=== PATIENT | male | born 1945 | race Caucasian/White ===

== ENCOUNTER 2017-04-26 21:57 | Inpatient (IN) | payer OTHER ==
[~2017-04-26] VITALS: Ht 185.4 cm; Wt 168.0 kg
[~2017-04-26 21:57] MED LIST: ACTOS30 MG PO; ALLOPURINOL300 MG PO; Allopurinol PO; Aspirin Chewable PO; BISOPROLOL FUMA10 MG PO; COLACE100 MG PO; COUMADIN,JANTOVE6 MG PO; DIOVAN80 MG PO; FUROSEMIDE40 MG PO; KLOR-CON M2020 MEQ PO; KLOR-CON20 MEQ PO; Klor-Con M20 PO; LANTUS 10100 UNITS/ SC; LANTUS100 UNIT/1 SQ; LANTUS100 UNIT/2 SQ; Lantus 3 ml Solostar SC; Lantus SQ; Lovenox SC; METFORMIN HCL500 MG PO; NORVASC10 MG PO; NOVOLOG 10100 UNITS/ SC; NovoLOG Pen 3 ml SC; PERCOCET 5/31 TABLET PO; PRAVASTATIN SOD80 MG PO; PREDNISONE20 MG PO; Proair HFA IH; SIMVASTATIN80 M1 PO; SIMVASTATIN80 MG PO; TRAMADOL HCL50 MG PO; Victoza SC; ZEBETA5 MG PO; Zocor PO
[2017-04-26 22:10] LABS: CREATININE 1.6 mg/dL (0.6-1.3); POTASSIUM 4.5 mEq/L (3.7-5.4)
[2017-04-26 23:09] LABS: HEMATOCRIT 43.2 % (38.0-50.0); MCH 28.6 PG (29.0-34.0); MCHC 32.4 G/DL (30.0-36.0); MCV 88.3 FL (86-99); MEAN PLAT.VOLUME 10.4 uM^3 (9.0-12.4); PLATELET COUNT 215 K/uL (156-360); RBC DIS.WIDTH-CV 14.6 % (11.8-14.6); RBC DIS.WIDTH-SD 47.3 % (39-53); RED BLOOD COUNT 4.89 M/uL (4.00-5.50); WHITE BLOOD COUNT 10.8 K/uL (4.1-10.2)
[2017-04-26 23:18] LABS: CHLORIDE 101 mEq/L (99-109); POTASSIUM 4.7 mEq/L (3.7-5.4); SODIUM 137 mEq/L (136-147)
[2017-04-26 23:20] LABS: GLUCOSE 93 mg/dL (70-99)
[2017-04-26 23:22] LABS: ANION GAP 11 MEQ/L (2-14)
[2017-04-26 23:24] LABS: GFR ESTIMATE (CALCULATED) 42 mL/min/
[2017-04-26 23:25] LABS: UREA NITROGEN (BUN) 29 mg/dL (9-23)
[2017-04-26 23:34] LABS: TROP-I INTERPRETATION POSITIVE; TROPONIN-I 43.42 ng/mL (0.0-0.30)
[2017-04-27] VITALS (24 sets, daily range): BP systolic 87–144; BP diastolic 43–103
[2017-04-27 00:31] LABS: INTER. NORMALIZED RATIO 3.3; PROTHROMBIN TIME 35.2 (9.2-11.2); PTT 69.6 (25-32)
[2017-04-27 03:50] LABS: METH RESISTANT S AUREUS PCR NEGATIVE (NEGATIVE)
[2017-04-27 04:10] LABS: PROBE CHECK PASS; SPECIMEN PROCESSING CONTROL PASS
[2017-04-27 05:25] LABS: HEMATOCRIT 41.6 % (38.0-50.0); MCHC 32.5 G/DL (30.0-36.0); MCV 89.3 FL (86-99); MEAN PLAT.VOLUME 10.2 uM^3 (9.0-12.4); PLATELET COUNT 208 K/uL (156-360); RBC DIS.WIDTH-CV 14.9 % (11.8-14.6); RBC DIS.WIDTH-SD 48.4 % (39-53); RED BLOOD COUNT 4.66 M/uL (4.00-5.50)
[2017-04-27 05:37] LABS: TROP-I INTERPRETATION POSITIVE; TROPONIN-I 46.76 ng/mL (0.0-0.30)
[2017-04-27 05:58] LABS: INTER. NORMALIZED RATIO 3.9; PROTHROMBIN TIME 41.5 (9.2-11.2)
[2017-04-27 06:26] LABS: ANION GAP 8 MEQ/L (2-14); CHLORIDE 101 MEQ/L (99-109); GFR ESTIMATE (CALCULATED) 49 mL/min/; POTASSIUM 4.4 MEQ/L (3.7-5.4); SAMPLE HEMOLYSIS CHECK 0; SAMPLE ICTERIC CHECK 0; SAMPLE LIPEMIA CHECK 0; SODIUM 133 MEQ/L (136-147); UREA NITROGEN (BUN) 25 mg/dL (9-23)
[2017-04-27 06:30] LABS: GLUCOSE 62 mg/dL (70-99)
[2017-04-27 07:41] LABS: POINT-OF-CARE METER ID UU14162636
[2017-04-27 07:52] LABS: POINT-OF-CARE METER ID UU14162636
[2017-04-27 11:42] LABS: POINT-OF-CARE METER ID UU14162636
[2017-04-27 13:22] LABS: POINT-OF-CARE METER ID UU14162636
[2017-04-27 15:25] LABS: POINT-OF-CARE METER ID UU14162636
[2017-04-27 16:59] LABS: POINT-OF-CARE METER ID UU14162636
[2017-04-27 21:17] LABS: POINT-OF-CARE METER ID UU14162636
[2017-04-28] VITALS (24 sets, daily range): BP systolic 83–146; BP diastolic 25–88
[2017-04-28 05:56] LABS: HEMATOCRIT 37.3 % (38.0-50.0); MCH 28.6 PG (29.0-34.0); MCHC 31.6 G/DL (30.0-36.0); MCV 90.3 FL (86-99); MEAN PLAT.VOLUME 10.8 uM^3 (9.0-12.4); PLATELET COUNT 170 K/uL (156-360); RBC DIS.WIDTH-CV 14.9 % (11.8-14.6); RBC DIS.WIDTH-SD 49.8 % (39-53); RED BLOOD COUNT 4.13 M/uL (4.00-5.50)
[2017-04-28 06:00] LABS: TROP-I INTERPRETATION POSITIVE
[2017-04-28 06:17] LABS: INTER. NORMALIZED RATIO 3.1; PROTHROMBIN TIME 32.8 (9.2-11.2)
[2017-04-28 06:24] LABS: CHLORIDE 104 mEq/L (99-109); POTASSIUM 5.2 mEq/L (3.7-5.4); SODIUM 133 mEq/L (136-147)
[2017-04-28 06:27] LABS: ANION GAP 7 MEQ/L (2-14)
[2017-04-28 06:29] LABS: GFR ESTIMATE (CALCULATED) 37 mL/min/; GLUCOSE 113 mg/dL (70-99)
[2017-04-28 06:30] LABS: UREA NITROGEN (BUN) 28 mg/dL (9-23)
[2017-04-28 12:14] LABS: POINT-OF-CARE METER ID UU13113731
[2017-04-28 15:51] LABS: POINT-OF-CARE METER ID UU13113731
[2017-04-28 18:58] LABS: TOTAL BILIRUBIN 0.5 mg/dL (0.0-1.0)
[2017-04-28 18:59] LABS: ALKALINE PHOSPHATASE 75 IU/L (3-129)
[2017-04-28 19:02] LABS: DIRECT BILIRUBIN 0.2 mg/dL (0.0-0.3)
[2017-04-28 19:03] LABS: LIPASE 11 U/L (1.0-51.0)
[2017-04-29] VITALS (16 sets, daily range): BP systolic 108–150; BP diastolic 64–83
[2017-04-29 06:02] LABS: INTER. NORMALIZED RATIO 2.4
[2017-04-29 08:42] LABS: ANION GAP 9 MEQ/L (2-14); CHLORIDE 98 MEQ/L (99-109); GFR ESTIMATE (CALCULATED) 37 mL/min/; GLUCOSE 283 mg/dL (70-99); POTASSIUM 5.6 MEQ/L (3.7-5.4); SAMPLE HEMOLYSIS CHECK 0; SAMPLE ICTERIC CHECK 0; SAMPLE LIPEMIA CHECK 0; SODIUM 128 MEQ/L (136-147); UREA NITROGEN (BUN) 36 mg/dL (9-23)
[2017-04-29] MEDS ORDERED: ZYLOPRIM300 MG PO (08:45)
[2017-04-29] MEDS ORDERED: ZEBETA10 MG PO (08:50)
[2017-04-29] MEDS ORDERED: LANTUS 3 M100 UNITS1 SC ×2 (08:58→08:59)
[2017-04-29] MEDS ORDERED: COUMADIN2 MG PO (09:00)
[2017-04-29] MEDS ORDERED: K-DUR20 MEQ PO (09:03)
[2017-04-29] MEDS ORDERED: PROAIR HFA8.5 GM IH (09:04)
[2017-04-29] MEDS ORDERED: HUMALOG100 UNIT/2 SC (09:07)
[2017-04-29] MEDS ORDERED: PRAVACHOL20 MG PO (09:08)
[2017-04-29] MEDS ORDERED: NEURONTIN300 MG PO (09:10)
[2017-04-29] MEDS ORDERED: NORVASC10 MG PO (09:10)
[2017-04-29] MEDS ORDERED: SINGULAIR10 MG PO (09:11)
[2017-04-29] MEDS ORDERED: PAIN RELIEF650 MG PO (09:13)
[2017-04-29 10:00] LABS: EOSINOPHIL (%) 0 % (0-5); HEMATOCRIT 41.7 % (38.0-50.0); IMMATURE GRANULOCYTE (%) 0.5 % (0.0-0.7); IMMATURE GRANULOCYTE COUNT 0.1 K/uL; INSTRUMENT ABS NEUTROPHIL CT 11.8 K/uL; LYMPHOCYTE COUNT 0.4 K/uL (1.0-2.8); MCH 28.8 PG (29.0-34.0); MCHC 32.6 G/DL (30.0-36.0); MCV 88.2 FL (86-99); MEAN PLAT.VOLUME 10.7 uM^3 (9.0-12.4); MONOCYTE (%) 3.1 % (3-12); MONOCYTE COUNT 0.4 K/uL (0-0.8); NEUTROPHIL (%) 93.6 % (45-76); NEUTROPHIL COUNT 11.8 K/uL (1.8-6.4); PLATELET COUNT 193 K/uL (156-360); RBC DIS.WIDTH-CV 14.6 % (11.8-14.6); RBC DIS.WIDTH-SD 47.2 % (39-53); RED BLOOD COUNT 4.73 M/uL (4.00-5.50); WHITE BLOOD COUNT 12.6 K/uL (4.1-10.2)
[2017-04-29 13:22] LABS: ANION GAP 8 MEQ/L (2-14); CHLORIDE 96 MEQ/L (99-109); GFR ESTIMATE (CALCULATED) 40 mL/min/; GLUCOSE 351 mg/dL (70-99); POTASSIUM 5.3 MEQ/L (3.7-5.4); SAMPLE HEMOLYSIS CHECK 0; SAMPLE ICTERIC CHECK 0; SAMPLE LIPEMIA CHECK 0; SODIUM 129 MEQ/L (136-147); UREA NITROGEN (BUN) 35 mg/dL (9-23)
[2017-04-29 17:21] LABS: ADD MIUA? YES; BILIRUBIN NEGATIVE; BLOOD SMALL; COLOR YELLOW ((YELLOW)); GLUCOSE (STRIP) >=500; KETONES NEGATIVE; LEUKOCYTES NEGATIVE; NITRITE NEGATIVE; PROTEIN (STRIP) NEGATIVE; SPECIFIC GRAVITY 1.017 (1.000-1.030); UROBILINOGEN 0.2 MG/DL (0.2-1.0)
[2017-04-29 17:25] LABS: BACTERIA NONE SEEN /HPF; EPITHELIAL CELLS RARE /HPF; MUCUS NONE SEEN /LPF; RED BLOOD CELLS 0-5 /HPF (0-5); WHITE BLOOD CELLS 0-5 /HPF (0-5)
[2017-04-30] VITALS: BP 110/65
[2017-04-30 04:00] VITALS: BP 111/69
[2017-04-30 05:27] LABS: EOSINOPHIL (%) 0 % (0-5); IMMATURE GRANULOCYTE (%) 0.6 % (0.0-0.7); IMMATURE GRANULOCYTE COUNT 0.1 K/uL; INSTRUMENT ABS NEUTROPHIL CT 14.1 K/uL; LYMPHOCYTE COUNT 0.3 K/uL (1.0-2.8); MCHC 33.5 G/DL (30.0-36.0); MCV 86.7 FL (86-99); MEAN PLAT.VOLUME 10.7 uM^3 (9.0-12.4); MONOCYTE (%) 3.8 % (3-12); MONOCYTE COUNT 0.6 K/uL (0-0.8); NEUTROPHIL (%) 93.4 % (45-76); NEUTROPHIL COUNT 14.1 K/uL (1.8-6.4); PLATELET COUNT 205 K/uL (156-360); RBC DIS.WIDTH-CV 14.6 % (11.8-14.6); RBC DIS.WIDTH-SD 46.1 % (39-53); RED BLOOD COUNT 4.27 M/uL (4.00-5.50); WHITE BLOOD COUNT 15.1 K/uL (4.1-10.2)
[2017-04-30 05:33] LABS: INTER. NORMALIZED RATIO 3.2; PROTHROMBIN TIME 33.7 (9.2-11.2)
[2017-04-30 05:48] LABS: ANION GAP 8 MEQ/L (2-14); CHLORIDE 96 MEQ/L (99-109); GFR ESTIMATE (CALCULATED) 42 mL/min/; GLUCOSE 290 mg/dL (70-99); POTASSIUM 5.4 MEQ/L (3.7-5.4); SAMPLE HEMOLYSIS CHECK 0; SAMPLE ICTERIC CHECK 0; SAMPLE LIPEMIA CHECK 0; SODIUM 130 MEQ/L (136-147); UREA NITROGEN (BUN) 38 mg/dL (9-23)
[2017-04-30 09:00] VITALS: BP 164/91
[2017-04-30 12:00] VITALS: BP 154/78
[2017-04-30 12:29] LABS: POINT-OF-CARE METER ID UU13113803
[2017-04-30 17:19] LABS: POINT-OF-CARE METER ID UU13113803
[2017-04-30 19:57] VITALS: BP 141/74
[2017-04-30 21:37] LABS: POINT-OF-CARE METER ID UU13113731
[2017-05-01] VITALS (7 sets, daily range): BP systolic 123–157; BP diastolic 57–89
[2017-05-01 05:31] LABS: EOSINOPHIL (%) 0 % (0-5); HEMATOCRIT 40.2 % (38.0-50.0); IMMATURE GRANULOCYTE (%) 0.7 % (0.0-0.7); IMMATURE GRANULOCYTE COUNT 0.1 K/uL; INSTRUMENT ABS NEUTROPHIL CT 14.8 K/uL; LYMPHOCYTE COUNT 0.4 K/uL (1.0-2.8); MCHC 32.3 G/DL (30.0-36.0); MCV 86.6 FL (86-99); MEAN PLAT.VOLUME 10.2 uM^3 (9.0-12.4); MONOCYTE (%) 5.4 % (3-12); MONOCYTE COUNT 0.9 K/uL (0-0.8); NEUTROPHIL (%) 91.4 % (45-76); NEUTROPHIL COUNT 14.8 K/uL (1.8-6.4); PLATELET COUNT 266 K/uL (156-360); RBC DIS.WIDTH-CV 14.6 % (11.8-14.6); RBC DIS.WIDTH-SD 46.6 % (39-53); RED BLOOD COUNT 4.64 M/uL (4.00-5.50); WHITE BLOOD COUNT 16.2 K/uL (4.1-10.2)
[2017-05-01 06:51] LABS: ANION GAP 9 MEQ/L (2-14); CHLORIDE 94 MEQ/L (99-109); GFR ESTIMATE (CALCULATED) 45 mL/min/; GLUCOSE 278 mg/dL (70-99); POTASSIUM 4.9 MEQ/L (3.7-5.4); SAMPLE HEMOLYSIS CHECK 0; SAMPLE ICTERIC CHECK 0; SAMPLE LIPEMIA CHECK 0; SODIUM 131 MEQ/L (136-147); UREA NITROGEN (BUN) 40 mg/dL (9-23)
[2017-05-01 07:36] LABS: PROTHROMBIN TIME 50.9 (9.2-11.2)
[2017-05-01 07:37] LABS: INTER. NORMALIZED RATIO 4.8
[2017-05-01 22:53] LABS: POINT-OF-CARE METER ID UU13113731
[2017-05-02] VITALS (7 sets, daily range): BP systolic 133–164; BP diastolic 71–91
[2017-05-02 06:14] LABS: EOSINOPHIL (%) 0 % (0-5); HEMATOCRIT 39.2 % (38.0-50.0); IMMATURE GRANULOCYTE (%) 0.9 % (0.0-0.7); IMMATURE GRANULOCYTE COUNT 0.1 K/uL; LYMPHOCYTE COUNT 0.3 K/uL (1.0-2.8); MCH 28.4 PG (29.0-34.0); MCHC 32.9 G/DL (30.0-36.0); MCV 86.3 FL (86-99); MEAN PLAT.VOLUME 10.4 uM^3 (9.0-12.4); MONOCYTE (%) 6.5 % (3-12); MONOCYTE COUNT 0.7 K/uL (0-0.8); NEUTROPHIL (%) 89.5 % (45-76); PLATELET COUNT 253 K/uL (156-360); RBC DIS.WIDTH-CV 14.6 % (11.8-14.6); RBC DIS.WIDTH-SD 46.5 % (39-53); RED BLOOD COUNT 4.54 M/uL (4.00-5.50); WHITE BLOOD COUNT 11.2 K/uL (4.1-10.2)
[2017-05-02 06:58] LABS: ANION GAP 9 MEQ/L (2-14); CHLORIDE 91 MEQ/L (99-109); GFR ESTIMATE (CALCULATED) 53 mL/min/; GLUCOSE 332 mg/dL (70-99); POTASSIUM 5.8 MEQ/L (3.7-5.4); SAMPLE HEMOLYSIS CHECK 0; SAMPLE ICTERIC CHECK 0; SAMPLE LIPEMIA CHECK 0; SODIUM 128 MEQ/L (136-147); UREA NITROGEN (BUN) 39 mg/dL (9-23)
[2017-05-02 07:40] LABS: INTER. NORMALIZED RATIO 5.3; PROTHROMBIN TIME 57.3 (9.2-11.2)
[2017-05-02 12:17] LABS: POINT-OF-CARE METER ID UU14174217
[2017-05-02 21:12] LABS: POINT-OF-CARE METER ID UU13113781; POINT-OF-CARE USER ID ENVMNS
[2017-05-03 04:25] VITALS: BP 139/75
[2017-05-03 06:36] LABS: ANION GAP 9 MEQ/L (2-14); CHLORIDE 93 MEQ/L (99-109); GFR ESTIMATE (CALCULATED) 53 mL/min/; GLUCOSE 276 mg/dL (70-99); POTASSIUM 4.6 MEQ/L (3.7-5.4); SAMPLE HEMOLYSIS CHECK 0; SAMPLE ICTERIC CHECK 0; SAMPLE LIPEMIA CHECK 0; SODIUM 129 MEQ/L (136-147); UREA NITROGEN (BUN) 38 mg/dL (9-23)
[2017-05-03 06:49] LABS: PROTHROMBIN TIME 42.3 (9.2-11.2)
[2017-05-03 08:30] VITALS: BP 133/68
[2017-05-03 11:43] VITALS: BP 150/67
[2017-05-03 19:30] VITALS: BP 142/86
[2017-05-03 20:47] LABS: POTASSIUM 4.9 mEq/L (3.7-5.4); SODIUM 127 mEq/L (136-147)
[2017-05-03 20:49] LABS: GLUCOSE 385 mg/dL (70-99)
[2017-05-03 20:51] LABS: ANION GAP 8 MEQ/L (2-14)
[2017-05-03 20:53] LABS: GFR ESTIMATE (CALCULATED) 42 mL/min/
[2017-05-03 20:54] LABS: CHLORIDE 93 mEq/L (99-109); UREA NITROGEN (BUN) 40 mg/dL (9-23)
[2017-05-04 00:18] VITALS: BP 137/75
[2017-05-04 03:27] VITALS: BP 134/76
[2017-05-04 05:06] LABS: CHLORIDE 95 mEq/L (99-109); POTASSIUM 4.6 mEq/L (3.7-5.4)
[2017-05-04 05:07] LABS: SODIUM 134 mEq/L (136-147)
[2017-05-04 05:10] LABS: ANION GAP 5 MEQ/L (2-14)
[2017-05-04 05:16] LABS: GFR ESTIMATE (CALCULATED) 45 mL/min/
[2017-05-04 05:17] LABS: UREA NITROGEN (BUN) 36 mg/dL (9-23)
[2017-05-04 05:30] LABS: GLUCOSE 246 mg/dL (70-99)
[2017-05-04 05:34] LABS: INTER. NORMALIZED RATIO 2.5; PROTHROMBIN TIME 26.3 (9.2-11.2)
[2017-05-04 08:07] VITALS: BP 149/70
[2017-05-04 08:26] LABS: POINT-OF-CARE USER ID ENVKC36
[2017-05-04 11:16] VITALS: BP 132/77
[2017-05-04] MEDS ORDERED: METOPROLOL SUC100 MG PO (11:52)
[2017-05-04] MEDS ORDERED: RANEXA500 MG PO (11:52)
[2017-05-04] MEDS ORDERED: PANTOPRAZOLE SO40 MG PO (11:52)
[2017-05-04] MEDS ORDERED: CEFDINIR300 MG PO (11:52)
[2017-05-04] MEDS ORDERED: BENZONATATE100 MG PO (11:52)
[2017-05-04] MEDS ORDERED: ASPIR-LOW81 MG PO (11:52)
[2017-05-04] MEDS ORDERED: PRAVASTATIN SOD80 MG PO (11:52)
[2017-05-04 11:55] LABS: POINT-OF-CARE METER ID UU13113781; POINT-OF-CARE USER ID ENVKC36
[2017-05-04] MEDS ORDERED: TRAMADOL HCL50 MG PO (12:17)
[2017-05-04] MEDS ORDERED: TYLENOL ARTHRI650 MG PO (12:17)
== END 2017-05-04 15:12 | disposition home health service (06) | DRG 281 ==
LOC: EME → EDBD 21:57 → EME 04-27 00:37 → CATH 04-27 00:37 → 4WEST 04-27 02:18 → 4EAST 05-02 14:37
PROVIDERS: Emergency Medicine; Hospitalist; Internal Medicine Cardiovascular Disease; Internal Medicine Nephrology; Student in an Organized Health Care Education/Training Program
DX: I21.19 ST elevation (STEMI) myocardial infarction involving other coronary artery of inferior wall (principal); N17.9 Acute kidney failure, unspecified; Z95.2 Presence of prosthetic heart valve; E66.01 Morbid (severe) obesity due to excess calories; Z68.42 Body mass index [BMI] 45.0-49.9, adult; E11.22 Type 2 diabetes mellitus with diabetic chronic kidney disease; I12.9 Hypertensive chronic kidney disease with stage 1 through stage 4 chronic kidney disease, or unspecified chronic kidney disease; N18.3 Chronic kidney disease, stage 3 (moderate); E78.5 Hyperlipidemia, unspecified; Z95.1 Presence of aortocoronary bypass graft; I71.2 Thoracic aortic aneurysm, without rupture; T50.8X5A Adverse effect of diagnostic agents, initial encounter; E87.5 Hyperkalemia; J45.901 Unspecified asthma with (acute) exacerbation; I44.7 Left bundle-branch block, unspecified; I25.810 Atherosclerosis of coronary artery bypass graft(s) without angina pectoris; I25.5 Ischemic cardiomyopathy; E11.65 Type 2 diabetes mellitus with hyperglycemia; J20.9 Acute bronchitis, unspecified; E87.1 Hypo-osmolality and hyponatremia; I34.0 Nonrheumatic mitral (valve) insufficiency
CPT/HCPCS: 71010; 71275; 80047; 80048; 80048 91; 80069; 80076; 81003; 82948; 83690; 83880; 83930; 84484; 85025; 85027; 85347; 85610; 85730; 86900; 86901; 87641; 93005; 93306; 94640; 94640 76; 94799; 99202; 99281; 99285; C1769; C1887; J0461; J0692; J1644; J1815; J2250; J2270; J2405; J2920; J3010; J3246; J7030; J7040; J7050; J7512